=== PATIENT | female | born 1990 | race Two or more races ===

== ENCOUNTER 2017-11-14 13:25 | Emergency (ER) | payer SELFPAY ==
[~2017-11-14] VITALS: Ht 165.1 cm; Wt 99.8 kg
[2017-11-14 13:48] LABS: BASOPHILS # (AUTO) 0.1 K/uL (0.0-8.0); BASOPHILS % (AUTO) 0.9 % (0.0-2.0); EOSINOPHILS # (AUTO) 0.2 K/uL (0.0-0.7); EOSINOPHILS % (AUTO) 1.4 % (0.0-7.0); HEMATOCRIT 38.9 % (31.2-41.9); HEMOGLOBIN 13.4 g/dL (10.9-14.3); LYMPHOCYTES # (AUTO) 3.6 K/uL (20.0-40.0); LYMPHOCYTES % (AUTO) 31.6 % (20.5-51.5); MEAN CORPUSCULAR HEMOGLOBIN 29.8 uug (24.7-32.8); MEAN CORPUSCULAR HGB CONC 34 g/dL (32.3-35.6); MEAN CORPUSCULAR VOLUME 86.6 fL (75.5-95.3); MONOCYTES # (AUTO) 0.7 K/uL (2.0-10.0); MONOCYTES % (AUTO) 6.4 % (0.0-11.0); NEUTROPHILS # (AUTO) 6.9 K/uL (1.8-8.9); NEUTROPHILS % (AUTO) 59.7 % (38.5-71.5); PLATELET COUNT (AUTO) 373 K/uL (179-408); WHITE BLOOD COUNT (AUTO) 11.5 K/uL (3.8-11.8)
[2017-11-14 13:57] LABS: CREATININE 0.6 mg/dL (0.6-1.3); POTASSIUM 3.9 mmol/L (3.5-5.1)
--- NOTE | 2017-11-14 14:25 | NUR ---
DR HUANG MADE PATIENT AWARE OF TEST RESULTS WILL BE DC HOME.
--- NOTE | 2017-11-14 14:33 | NUR ---
Patient discharged to home in stable conditon. Written and verbal after care instructions given. Patient verbalizes understanding of instructions.
[2017-11-14 14:34] VITALS: BP 128/72
== END 2017-11-14 14:36 | disposition home or self-care (01) ==
LOC: ER 13:27
DX: R07.89 Other chest pain (principal)
CPT/HCPCS: 36415; 70030-TC; 71045; 85025; 93005; A4663